=== PATIENT | female | born 1990 | race Caucasian/White ===

== ENCOUNTER 2017-01-14 10:50 | Observation (INO) | payer OTHER ==
[~2017-01-14] VITALS: Ht 167.6 cm; Wt 174.2 kg
[~2017-01-14 10:50] MED LIST: ALBU8HFA IH; MONT10TA21 PO
[2017-01-14 13:03] VITALS: BP 134/77
== END 2017-01-14 12:55 | disposition home or self-care (01) ==
LOC: 4S 10:50
PROVIDERS: ADMIT Obstetrics & Gynecology; ATTEND Obstetrics & Gynecology
DX: O26.893 Other specified pregnancy related conditions, third trimester (principal); M54.5 Low back pain; R10.30 Lower abdominal pain, unspecified; Z3A.25 25 weeks gestation of pregnancy
CPT/HCPCS: 59025; G0378

== ENCOUNTER 2018-12-25 13:46 | Emergency (ER) | payer OTHER ==
[~2018-12-25] VITALS: Ht 167.6 cm; Wt 118.2 kg
[2018-12-25 15:46] LABS: BASOPHILS % (AUTO) 1.2 % (0.0-2.0); EOSINOPHILS % (AUTO) 0.8 % (1.0-6.0); HEMATOCRIT 38.1 % (36-46); LYMPHOCYTES # (AUTO) 2.8 K/uL (1.0-4.8); LYMPHOCYTES % (AUTO) 28.5 % (22.0-44.0); MEAN CORPUSCULAR HEMOGLOBIN 21.6 pg (26.0-34.0); MEAN CORPUSCULAR HGB CONC 31.4 G/dL (31.0-37.0); MEAN CORPUSCULAR VOLUME 69 fL (80-100); MONOCYTES # (AUTO) 0.6 K/uL (0.1-1.0); MONOCYTES % (AUTO) 6.1 % (2.0-9.0); NEUTROPHILS # (AUTO) 6.1 K/uL (1.8-7.7); NEUTROPHILS % (AUTO) 63.4 % (40.0-70.0); PLATELET COUNT (AUTO) 327 K/uL (150-450); RED BLOOD CELL COUNT(AUTO) 5.55 MIL/uL (4.00-5.20); RED CELL DISTRIBUTION WIDTH 20.4 % (11.5-14.5)
[2018-12-25 15:50] LABS: ANION GAP 7 mmol/L (8-16); CALCIUM, TOTAL 8.9 mg/dL (8.8-10.5); CARBON DIOXIDE 26 mmol/L (22-29); CHLORIDE 101 mmol/L (98-107); CREATININE 0.72 mg/dL (0.60-1.30); GLOMERULAR FILTR. RATE CALC > 60 mL/min (>60); GLUCOSE,RANDOM 84 mg/dL (70-110); POTASSIUM 3.8 mmol/L (3.5-5.1); SODIUM SERUM 134 mmol/L (136-145); UREA NITROGEN, BLOOD 9 mg/dL (7-18)
[2018-12-25 16:05] VITALS: BP 135/96
== END 2018-12-25 16:17 | disposition home or self-care (01) ==
LOC: EMS 13:48
DX: R51 Headache (principal); R03.0 Elevated blood-pressure reading, without diagnosis of hypertension; J44.9 Chronic obstructive pulmonary disease, unspecified; F12.90 Cannabis use, unspecified, uncomplicated; F41.9 Anxiety disorder, unspecified

== ENCOUNTER 2020-10-21 14:57 | Emergency (ER) | payer OTHER ==
[~2020-10-21] VITALS: Ht 167.6 cm; Wt 86.4 kg
[2020-10-21 15:18] VITALS: BP 132/86
== END 2020-10-21 16:53 | disposition home or self-care (01) ==
LOC: EMS 14:57
DX: F41.9 Anxiety disorder, unspecified (principal); R63.0 Anorexia; T50.995A Adverse effect of other drugs, medicaments and biological substances, initial encounter; J44.9 Chronic obstructive pulmonary disease, unspecified; F17.210 Nicotine dependence, cigarettes, uncomplicated; F12.90 Cannabis use, unspecified, uncomplicated
CPT/HCPCS: Z7502

== ENCOUNTER 2021-02-03 13:25 | Emergency (ER) | payer OTHER ==
[~2021-02-03] VITALS: Ht 170.2 cm; Wt 102.3 kg
[2021-02-03 14:22] LABS: BASOPHILS % (AUTO) 1.1 % (0.0-2.0); HEMATOCRIT 35.9 % (36-46); HEMOGLOBIN 11.4 g/dL (12.0-16.0); LYMPHOCYTES % (AUTO) 29.5 % (22.0-44.0); MEAN CORPUSCULAR HEMOGLOBIN 22.1 pg (26.0-34.0); MEAN CORPUSCULAR HGB CONC 31.6 G/dL (31.0-37.0); MEAN CORPUSCULAR VOLUME 70 fL (80-100); MONOCYTES # (AUTO) 0.5 K/uL (0.1-1.0); MONOCYTES % (AUTO) 5.2 % (2.0-9.0); NEUTROPHILS # (AUTO) 6.4 K/uL (1.8-7.7); NEUTROPHILS % (AUTO) 63.2 % (40.0-70.0); PLATELET COUNT (AUTO) 339 K/uL (150-450); RED BLOOD CELL COUNT(AUTO) 5.15 MIL/uL (4.00-5.20); RED CELL DISTRIBUTION WIDTH 18.6 % (11.5-14.5)
[2021-02-03 14:44] LABS: ANION GAP 9 mmol/L (8-16); CALCIUM, TOTAL 9.4 mg/dL (8.8-10.5); CARBON DIOXIDE 28 mmol/L (22-29); CHLORIDE 101 mmol/L (98-107); CREATININE 0.65 mg/dL (0.60-1.30); GLOMERULAR FILTR. RATE CALC > 60 mL/min (>60); GLUCOSE,RANDOM 98 mg/dL (70-110); POTASSIUM 3.9 mmol/L (3.5-5.1); SODIUM SERUM 138 mmol/L (136-145); UREA NITROGEN, BLOOD 13 mg/dL (7-18)
[2021-02-03 14:49] LABS: ALANINE AMINOTRANSFERASE 12 U/L (12-78); ALBUMIN 3.6 g/dL (3.4-5.0); ALKALINE PHOSPHATASE 99 U/L (46-116); ASPARTATE AMINOTRANSFERASE 15 U/L (15-37); BILIRUBIN,TOTAL 0.3 mg/dL (0.1-1.0); TOTAL PROTEIN, SERUM 8.9 g/dL (6.4-8.2)
[2021-02-03 15:45] VITALS: BP 139/81
== END 2021-02-03 16:15 | disposition home or self-care (01) ==
LOC: EMS 13:25
DX: F41.9 Anxiety disorder, unspecified (principal)
CPT/HCPCS: 80053; 84484; 85025; 93005; 99284

== ENCOUNTER 2021-05-06 00:08 | Emergency (ER) | payer OTHER ==
[~2021-05-06] VITALS: Ht 167.6 cm; Wt 136.4 kg
[2021-05-06] MEDS ORDERED: NAPR-1025 PO (00:21)
[2021-05-06 00:52] VITALS: BP 123/57
== END 2021-05-06 02:51 | disposition left against medical advice (07) ==
LOC: EMS 00:08
DX: K08.89 Other specified disorders of teeth and supporting structures (principal); Z53.21 Procedure and treatment not carried out due to patient leaving prior to being seen by health care provider

== ENCOUNTER 2021-05-06 03:52 | Emergency (ER) | payer OTHER ==
[~2021-05-06] VITALS: Ht 167.6 cm; Wt 136.4 kg
[~2021-05-06 03:52] MED LIST changes: -ALBU8HFA IH; -MONT10TA21 PO; +NAPR-1025 PO
[2021-05-06 03:58] VITALS: BP 137/81
[2021-05-06] MEDS ORDERED: LIDOCAINE 1%/EPI 1:200,000/PF 10 ML VIAL ID ONE (04:45)
[2021-05-06] MEDS ORDERED: LORazepam 2 MG TABLET PO ONE (04:45)
[2021-05-06] MEDS ORDERED: BUPIVACAINE HCL/PF 0.5% 10 ML VIAL ID ONE (04:45)
== END 2021-05-06 06:30 | disposition home or self-care (01) ==
LOC: EMS 03:52
DX: K08.89 Other specified disorders of teeth and supporting structures (principal); F41.9 Anxiety disorder, unspecified; J44.9 Chronic obstructive pulmonary disease, unspecified; F12.90 Cannabis use, unspecified, uncomplicated; Z79.899 Other long term (current) drug therapy
CPT/HCPCS: 64400; 93005; 99284; J3490 ×2

== ENCOUNTER 2021-10-05 23:03 | Emergency (ER) | payer OTHER ==
[~2021-10-05] VITALS: Ht 162.6 cm; Wt 106.8 kg
[2021-10-06 00:04] VITALS: BP 132/71
== END 2021-10-06 00:06 | disposition home or self-care (01) ==
LOC: EMS 23:17
DX: M79.5 Residual foreign body in soft tissue (principal); J44.9 Chronic obstructive pulmonary disease, unspecified; F12.90 Cannabis use, unspecified, uncomplicated; Z79.899 Other long term (current) drug therapy
CPT/HCPCS: 99284; Z7502

== ENCOUNTER 2021-10-15 18:46 | Emergency (ER) | payer OTHER ==
[~2021-10-15] VITALS: Ht 167.6 cm; Wt 136.4 kg
[2021-10-15 19:06] VITALS: BP 141/92
[2021-10-15 20:55] LABS: COVID AG,FIA SOURCE NASOPHARYNGEAL
== END 2021-10-15 23:05 | disposition home or self-care (01) ==
LOC: EMS 19:50
DX: R68.83 Chills (without fever) (principal); F12.90 Cannabis use, unspecified, uncomplicated; Z20.822 Contact with and (suspected) exposure to COVID-19
CPT/HCPCS: 87426; 99283; U0003

== ENCOUNTER 2022-02-17 22:41 | Emergency (ER) | payer OTHER ==
[~2022-02-17] VITALS: Ht 167.6 cm; Wt 138.6 kg
[2022-02-17 23:12] LABS: COVID AG,FIA SOURCE NASAL SWAB
[2022-02-18 00:39] LABS: INFLUENZA TYPE B NEGATIVE FOR TYPE B (NEGATIVE)
[2022-02-18 00:46] LABS: INFLUENZA TYPE A POSITIVE FOR TYPE A (NEGATIVE)
[2022-02-18] MEDS ORDERED: BENZ-70 PO (00:57)
[2022-02-18] MEDS ORDERED: BENZ1LOZ50 PO (00:57)
[2022-02-18] MEDS ORDERED: IBUP-2070 PO (00:57)
[2022-02-18 01:02] VITALS: BP 128/77
== END 2022-02-18 01:12 | disposition home or self-care (01) ==
LOC: EMS 22:43
DX: J11.1 Influenza due to unidentified influenza virus with other respiratory manifestations (principal); Z20.822 Contact with and (suspected) exposure to COVID-19
CPT/HCPCS: 87804; 99283

== ENCOUNTER 2022-04-06 21:28 | Emergency (ER) | payer OTHER ==
[~2022-04-06] VITALS: Ht 172.7 cm; Wt 113.0 kg
[~2022-04-06 21:28] MED LIST changes: +BENZ-70 PO; +BENZ1LOZ50 PO; +IBUP-2070 PO; -NAPR-1025 PO
[2022-04-06] MEDS ORDERED: ACETAMINOPHEN 325 MG TABLET PO ONE (22:15)
[2022-04-06] MEDS ORDERED: SODIUM CHLORIDE 0.9% 1,000 ML IV ONE (22:15)
[2022-04-06 22:27] LABS: COVID AG,FIA SOURCE NASOPHARYNGEAL
[2022-04-06 22:47] LABS: INFLUENZA TYPE A NEGATIVE FOR TYPE A (NEGATIVE); INFLUENZA TYPE B NEGATIVE FOR TYPE B (NEGATIVE)
[2022-04-06 23:06] LABS: BASOPHILS % (AUTO) 0.5 % (0.0-2.0); EOSINOPHILS % (AUTO) 0.7 % (1.0-6.0); HEMATOCRIT 34.6 % (36-46); HEMOGLOBIN 11.1 g/dL (12.0-16.0); LYMPHOCYTES # (AUTO) 0.9 K/uL (1.0-4.8); LYMPHOCYTES % (AUTO) 11.8 % (22.0-44.0); MEAN CORPUSCULAR HEMOGLOBIN 22.1 pg (26.0-34.0); MEAN CORPUSCULAR VOLUME 69 fL (80-100); MONOCYTES # (AUTO) 0.7 K/uL (0.1-1.0); MONOCYTES % (AUTO) 9.5 % (2.0-9.0); NEUTROPHILS # (AUTO) 5.6 K/uL (1.8-7.7); NEUTROPHILS % (AUTO) 77.5 % (40.0-70.0); PLATELET COUNT (AUTO) 295 K/uL (150-450); RED BLOOD CELL COUNT(AUTO) 5.02 MIL/uL (4.00-5.20); RED CELL DISTRIBUTION WIDTH 18.8 % (11.5-14.5)
[2022-04-06 23:09] LABS: ANION GAP 13 mmol/L (8-16); CALCIUM, TOTAL 9.2 mg/dL (8.8-10.5); CARBON DIOXIDE 23 mmol/L (22-29); CHLORIDE 101 mmol/L (98-107); CREATININE 0.63 mg/dL (0.60-1.30); GLUCOSE,RANDOM 94 mg/dL (70-110); POTASSIUM 3.9 mmol/L (3.5-5.1); SODIUM SERUM 137 mmol/L (136-145); UREA NITROGEN, BLOOD 6 mg/dL (7-18)
[2022-04-06 23:15] LABS: GLOMERULAR FILTR. RATE CALC > 60 mL/min (>60)
[2022-04-06 23:21] LABS: ALANINE AMINOTRANSFERASE 15 U/L (12-78); ALBUMIN 3.3 g/dL (3.4-5.0); ALKALINE PHOSPHATASE 87 U/L (46-116); ASPARTATE AMINOTRANSFERASE 16 U/L (15-37); BILIRUBIN,TOTAL 0.2 mg/dL (0.1-1.0); HCG,QUANTITATIVE < 1 mIU/mL (0-6); TOTAL PROTEIN, SERUM 8.4 g/dL (6.4-8.2)
[2022-04-06 23:29] LABS: C-REACTIVE PROTEIN QUANT 1.45 mg/dL (0.00-0.30); FERRITIN 16 ng/mL (8-252)
[2022-04-06 23:37] LABS: B-TYPE NATRIURETIC PEPTIDE 11 pg/mL (0-100)
[2022-04-06 23:42] LABS: PLATELET MORPHOLOGY COMMENT LARGE PLTS PRESENT
[2022-04-06] MEDS ORDERED: SODIUM CHLORIDE 0.9% 100 ML ONE (23:52)
[2022-04-06] MEDS ORDERED: IOHEXOL 350 MG/ML 150 ML VIAL ONE (23:53)
[2022-04-07 04:15] VITALS: BP 133/73
[2022-04-07] MEDS ORDERED: NIRM1TAB5 (05:28)
== END 2022-04-07 05:43 | disposition home or self-care (01) ==
LOC: EMS 21:28
DX: U07.1 COVID-19 (principal); J44.9 Chronic obstructive pulmonary disease, unspecified; Z86.2 Personal history of diseases of the blood and blood-forming organs and certain disorders involving the immune mechanism
CPT/HCPCS: 36415; 71045; 71275; 80053; 82728; 83605; 83880; 84145; 84484; 84702; 85025; 85379; 86140; 87426; 87804; 93005; 96360; 96361; 99285; J7030; J7050; Q9967

== ENCOUNTER 2022-04-10 02:58 | Emergency (ER) | payer OTHER ==
[~2022-04-10] VITALS: Ht 167.6 cm; Wt 137.0 kg
[~2022-04-10 02:58] MED LIST changes: +NIRM1TAB5
[2022-04-10 03:14] VITALS: BP 128/65
== END 2022-04-10 04:13 | disposition left against medical advice (07) ==
LOC: EMS 03:02
DX: Z53.21 Procedure and treatment not carried out due to patient leaving prior to being seen by health care provider (principal)

== ENCOUNTER 2023-07-16 20:29 | Emergency (ER) | payer OTHER ==
[~2023-07-16] VITALS: Ht 167.6 cm; Wt 145.0 kg
[~2023-07-16 20:29] MED LIST changes: +BENZ-227 PO; -BENZ-70 PO; -BENZ1LOZ50 PO; +BENZ1LOZ77 PO; +IBUP-1492 PO; -IBUP-2070 PO
[2023-07-16] MEDS ORDERED: FERR-72 PO (20:45)
[2023-07-16] MEDS ORDERED: ERGO500093 PO (20:45)
[2023-07-16 22:46] VITALS: TEMP 98.1
[2023-07-17 00:20] VITALS: BP 150/90; PULSE 88; RESP 16
== END 2023-07-17 00:21 | disposition home or self-care (01) ==
LOC: EMS 20:32
DX: K59.00 Constipation, unspecified (principal); F41.9 Anxiety disorder, unspecified; J44.9 Chronic obstructive pulmonary disease, unspecified; F12.90 Cannabis use, unspecified, uncomplicated
CPT/HCPCS: 74018; 99283

== ENCOUNTER 2023-10-30 21:31 | Emergency (ER) | payer OTHER ==
[~2023-10-30] VITALS: Ht 167.6 cm; Wt 147.0 kg
[~2023-10-30 21:31] MED LIST changes: -BENZ-227 PO; -BENZ1LOZ77 PO; +ERGO500093 PO; +FERR-72 PO; -IBUP-1492 PO; -NIRM1TAB5
[2023-10-30 22:16] VITALS: TEMP 98.2
[2023-10-30 23:25] LABS: BASOPHILS % (AUTO) 0.7 % (0.0-2.0); EOSINOPHILS % (AUTO) 1.4 % (1.0-6.0); HEMATOCRIT 28.9 % (36-46); LYMPHOCYTES # (AUTO) 3.7 K/uL (1.0-4.8); LYMPHOCYTES % (AUTO) 42.1 % (22.0-44.0); MEAN CORPUSCULAR HEMOGLOBIN 19.3 pg (26.0-34.0); MEAN CORPUSCULAR HGB CONC 31.3 G/dL (31.0-37.0); MEAN CORPUSCULAR VOLUME 62 fL (80-100); MONOCYTES # (AUTO) 0.6 K/uL (0.1-1.0); MONOCYTES % (AUTO) 7.3 % (2.0-9.0); NEUTROPHILS # (AUTO) 4.3 K/uL (1.8-7.7); NEUTROPHILS % (AUTO) 48.5 % (40.0-70.0); PLATELET COUNT (AUTO) 375 K/uL (150-450); RED BLOOD CELL COUNT(AUTO) 4.69 MIL/uL (4.00-5.20); RED CELL DISTRIBUTION WIDTH 20.6 % (11.5-14.5); WHITE BLOOD COUNT (AUTO) 8.8 K/uL (4.5-11.0)
[2023-10-30 23:36] LABS: PROTHROMBIN TIME 10.3 SEC (9.4-11.6)
[2023-10-30 23:43] LABS: POTASSIUM 3.2 mmol/L (3.5-5.1); SODIUM SERUM 130 mmol/L (136-145)
[2023-10-30 23:44] LABS: ALANINE AMINOTRANSFERASE 16 U/L (12-78); ALBUMIN 3.3 g/dL (3.4-5.0); ALKALINE PHOSPHATASE 115 U/L (46-116); ANION GAP 4 mmol/L (8-16); ASPARTATE AMINOTRANSFERASE 25 U/L (15-37); BILIRUBIN,TOTAL 0.2 mg/dL (0.1-1.0); CALCIUM, TOTAL 8.9 mg/dL (8.8-10.5); CARBON DIOXIDE 28 mmol/L (22-29); CHLORIDE 98 mmol/L (98-107); CREATININE 0.63 mg/dL (0.60-1.30); GLOMERULAR FILTR. RATE CALC > 60 mL/min (>60); GLUCOSE,RANDOM 117 mg/dL (70-110); HCG,QUANTITATIVE < 1 mIU/mL (0-6); TOTAL PROTEIN, SERUM 8.1 g/dL (6.4-8.2); UREA NITROGEN, BLOOD 7 mg/dL (7-18)
[2023-10-31] MEDS ORDERED: POTASSIUM CHLORIDE 20 MEQ ER TABLET PO ONE
[2023-10-31 00:45] VITALS: BP 142/89; PULSE 76; RESP 18
== END 2023-10-31 00:47 | disposition home or self-care (01) ==
LOC: EMS 21:34
DX: N93.8 Other specified abnormal uterine and vaginal bleeding (principal)
CPT/HCPCS: 80053; 84702; 85025; 85610; 85730; 99283

== ENCOUNTER 2025-04-11 08:02 | Emergency (ER) | payer OTHER ==
[~2025-04-11] VITALS: Ht 167.6 cm; Wt 140.9 kg
[~2025-04-11 08:02] MED LIST changes: +CHLO25CA6 PO; +FOLI-130 PO; +MULT-660 PO; +THIA100T80 PO
[2025-04-11 08:24] VITALS: BP 120/59; PULSE 95; RESP 14; TEMP 97.6; O2SAT 99
[2025-04-11] MEDS: ONDANSETRON HCL 4 MG/2 ML VIAL IVP ONE (08:39)
[2025-04-11] MEDS: SODIUM CHLORIDE 0.9% 1,000 ML IV ONE (08:39)
[2025-04-11 08:41] LABS: BASOPHILS % (AUTO) 0.9 % (0.0-2.0); EOSINOPHILS % (AUTO) 0.6 % (1.0-6.0); HEMATOCRIT 41.2 % (36-46); HEMOGLOBIN 13.4 g/dL (12.0-16.0); LYMPHOCYTES # (AUTO) 2.1 K/uL (1.0-4.8); LYMPHOCYTES % (AUTO) 22.8 % (22.0-44.0); MEAN CORPUSCULAR HEMOGLOBIN 25.4 pg (26.0-34.0); MEAN CORPUSCULAR HGB CONC 32.4 G/dL (31.0-37.0); MEAN CORPUSCULAR VOLUME 78 fL (80-100); MONOCYTES # (AUTO) 0.6 K/uL (0.1-1.0); MONOCYTES % (AUTO) 6.6 % (2.0-9.0); NEUTROPHILS # (AUTO) 6.4 K/uL (1.8-7.7); NEUTROPHILS % (AUTO) 69.1 % (40.0-70.0); PLATELET COUNT (AUTO) 379 K/uL (150-450); RED BLOOD CELL COUNT(AUTO) 5.26 MIL/uL (4.00-5.20); RED CELL DISTRIBUTION WIDTH 15.8 % (11.5-14.5); WHITE BLOOD COUNT (AUTO) 9.3 K/uL (4.5-11.0)
[2025-04-11 08:51] LABS: ANION GAP 7 mmol/L (8-16); CALCIUM, TOTAL 9.1 mg/dL (8.8-10.5); CARBON DIOXIDE 27 mmol/L (22-29); CHLORIDE 103 mmol/L (98-107); CREATININE 0.72 mg/dL (0.60-1.30); GLOMERULAR FILTR. RATE CALC > 60 mL/min (>60); GLUCOSE,RANDOM 86 mg/dL (70-110); POTASSIUM 3.7 mmol/L (3.5-5.1); SODIUM SERUM 137 mmol/L (136-145); UREA NITROGEN, BLOOD 9 mg/dL (7-18)
[2025-04-11 08:55] LABS: ALCOHOL, BLOOD (SERUM) < 3 mg/dL (0-10)
[2025-04-11 08:57] LABS: ALANINE AMINOTRANSFERASE 19 U/L (12-78); ALBUMIN 3.3 g/dL (3.4-5.0); ALKALINE PHOSPHATASE 86 U/L (46-116); ASPARTATE AMINOTRANSFERASE 26 U/L (15-37); BILIRUBIN,TOTAL 0.6 mg/dL (0.1-1.0); CREATINE KINASE, TOTAL ONLY 57 U/L (26-192)
[2025-04-11 09:02] LABS: TROPONIN I-HIGH SENSITIVITY 5 ng/L (<51)
[2025-04-11 09:10] LABS: B-TYPE NATRIURETIC PEPTIDE < 5 pg/mL (0-100)
[2025-04-11] MEDS ORDERED: TIRZ7.5P3 SQ (11:38)
== END 2025-04-11 09:36 | disposition home or self-care (01) ==
LOC: EMS 08:03
DX: R00.2 Palpitations (principal); R11.0 Nausea; R06.02 Shortness of breath; Z79.899 Other long term (current) drug therapy
CPT/HCPCS: 99284; 96374; 96361; 80048; 80076; 82550; 83735; 83880; 84484; 84703; 85025; 36415; 93005; G0480; J2405; J7030

== ENCOUNTER 2025-04-11 11:34 | Emergency (ER) | payer OTHER ==
[~2025-04-11] VITALS: Ht 167.6 cm; Wt 100.0 kg
[2025-04-11 11:36] VITALS: TEMP 97.9
[2025-04-11] MEDS ORDERED: TIRZ7.5P3 SQ (11:38)
[2025-04-11 12:54] LABS: TROPONIN I-HIGH SENSITIVITY 5 ng/L (<51)
[2025-04-11] MEDS: SODIUM CHLORIDE 0.9% 1,000 ML IV ONE (14:29)
[2025-04-11] MEDS: LORazepam 1 MG TABLET PO ONE (15:57)
[2025-04-11 16:48] VITALS: BP 140/77; PULSE 102; RESP 18; O2SAT 99
== END 2025-04-11 17:41 | disposition home or self-care (01) ==
LOC: EMS 11:36
DX: F41.9 Anxiety disorder, unspecified (principal); T38.3X5A Adverse effect of insulin and oral hypoglycemic [antidiabetic] drugs, initial encounter; R00.2 Palpitations; Z79.899 Other long term (current) drug therapy
CPT/HCPCS: 99285; 96360; 71045; 84443; 84484; 85379; 36415; 93005; J7030

== ENCOUNTER 2025-07-03 19:33 | Emergency (ER) | payer OTHER ==
[~2025-07-03] VITALS: Ht 167.6 cm; Wt 140.4 kg
[~2025-07-03 19:33] MED LIST changes: -CHLO25CA6 PO; +TIRZ7.5P3 SQ
[2025-07-03 21:49] LABS: PLATELET COUNT (AUTO) 325 K/uL (150-450); RED BLOOD CELL COUNT(AUTO) 4.75 MIL/uL (4.00-5.20); RED CELL DISTRIBUTION WIDTH 17.4 % (11.5-14.5); WHITE BLOOD COUNT (AUTO) 9.3 K/uL (4.5-11.0)
[2025-07-03 21:51] LABS: APPEARANCE,URINE CLEAR (CLEAR); GLUCOSE, URINE (UA) NEGATIVE (NEGATIVE); LEUKOCYTE ESTERASE ,URINE NEGATIVE (NEGATIVE); NITRATE,URINE NEGATIVE (NEGATIVE); OCCULT BLOOD,URINE NEGATIVE (NEGATIVE); PH,URINE DRUG SCREEN 6.0 (5.0-8.0); SPECIFIC GRAVITIY, URINE 1.023 (1.003-1.030)
[2025-07-03 21:54] LABS: CALCIUM, TOTAL 8.6 mg/dL (8.8-10.5); CREATININE 0.51 mg/dL (0.60-1.30); GLOMERULAR FILTR. RATE CALC > 60 mL/min (>60); GLUCOSE,RANDOM 101 mg/dL (70-110); SODIUM SERUM 135 mmol/L (136-145); UREA NITROGEN, BLOOD 8 mg/dL (7-18)
[2025-07-03 21:56] LABS: ALCOHOL, URINE DRUG SCREEN NEGATIVE (NEGATIVE); AMPHET/METH SCREEN,URINE NEGATIVE (NEGATIVE); BARBITURATE SCREEN, URINE NEGATIVE (NEGATIVE); CANNABINOID SCREEN,URINE NEGATIVE (NEGATIVE); COCAINE SCREEN,URINE NEGATIVE (NEGATIVE); METHADONE SCREEN, URINE NEGATIVE (NEGATIVE)
[2025-07-03 21:56] LABS: ALCOHOL, BLOOD (SERUM) < 3 mg/dL (0-10)
[2025-07-03 22:03] LABS: ASPARTATE AMINOTRANSFERASE 12 U/L (15-37); HCG,QUANTITATIVE 135 mIU/mL (0-6); TOTAL PROTEIN, SERUM 7.6 g/dL (6.4-8.2)
[2025-07-03 22:39] LABS: RBC MORPHOLOGY COMMENT ABNORMAL RBC MORPH
[2025-07-04] MEDS: LIDOCAINE 5% TRANSDERMAL PATCH TD ONE (03:10)
[2025-07-04] MEDS: ACETAMINOPHEN 500 MG TABLET PO ONE (03:10)
[2025-07-04 03:29] VITALS: BP 115/71; PULSE 74; RESP 16; TEMP 97.7; O2SAT 99
== END 2025-07-04 03:47 | disposition home or self-care (01) ==
LOC: EMS 19:34
DX: O26.891 Other specified pregnancy related conditions, first trimester (principal); M54.50 Low back pain, unspecified; N89.8 Other specified noninflammatory disorders of vagina; Z3A.01 Less than 8 weeks gestation of pregnancy; Z79.899 Other long term (current) drug therapy
CPT/HCPCS: 99283; 80048; 80076; 81003; 83690; 84702; 85025; 36415; 80307; G0480

== ENCOUNTER 2025-09-24 21:51 | Emergency (ER) | payer OTHER ==
[~2025-09-24] VITALS: Ht 167.6 cm; Wt 145.0 kg
[2025-09-24 22:09] VITALS: TEMP 98.6
[2025-09-24 22:35] LABS: PLATELET COUNT (AUTO) 327 K/uL (150-450); RED BLOOD CELL COUNT(AUTO) 5.18 MIL/uL (4.00-5.20); RED CELL DISTRIBUTION WIDTH 18.9 % (11.5-14.5); WHITE BLOOD COUNT (AUTO) 9.0 K/uL (4.5-11.0)
[2025-09-24 22:51] LABS: RBC MORPHOLOGY COMMENT ABNORMAL RBC MORPH
[2025-09-24 22:54] LABS: HCG,QUANTITATIVE 2 mIU/mL (0-6)
[2025-09-24 23:10] LABS: CALCIUM, TOTAL 8.9 mg/dL (8.8-10.5); CREATININE 0.56 mg/dL (0.60-1.30); GLOMERULAR FILTR. RATE CALC > 60 mL/min (>60); GLUCOSE,RANDOM 123 mg/dL (70-110); SODIUM SERUM 137 mmol/L (136-145); UREA NITROGEN, BLOOD 9 mg/dL (7-18)
[2025-09-25] MEDS: IBUPROFEN 400 MG TABLET PO ONE (00:17)
[2025-09-25] MEDS: ACETAMINOPHEN 500 MG TABLET PO ONE (00:17)
[2025-09-25] MEDS: LIDOCAINE 5% TRANSDERMAL PATCH TD ONE (00:18)
[2025-09-25 00:52] VITALS: BP 131/83; PULSE 75; RESP 18; O2SAT 96
== END 2025-09-25 01:00 | disposition home or self-care (01) ==
LOC: EMS 21:51
DX: R07.89 Other chest pain (principal); R11.0 Nausea; R00.2 Palpitations; N89.8 Other specified noninflammatory disorders of vagina; Z79.899 Other long term (current) drug therapy
CPT/HCPCS: 80048; 83690; 84702; 85025; 93005; 99284